=== PATIENT | male | born 1935 | race Caucasian/White ===

== ENCOUNTER 2017-01-03 12:52 | Emergency (ER) | payer OTHER ==
--- NOTE | 2017-01-03 13:36 | CPEKG ---
Heart Rate: 65 RR Interval: 923 P-R Interval: 212 QRSD Interval: 106 QT Interval: 444 QTC Interval: 462 P [place]: 18 QRS [place]: -1 T Wave [place]: 14 EKG Severity - NORMAL ECG - EKG Impression: SINUS RHYTHM Electronically Signed By: Jolene Mckenna 03-Jan-2017 14:46:49
--- NOTE | 2017-01-03 13:37 | EDPHY ---
H & P Time Seen by Provider: 01/03/17 13:21 HPI/ROS: CHIEF COMPLAINT: Shortness of breath HISTORY OF PRESENT ILLNESS: 81-year-old male with a history of hypertension presents with shortness of breath. Last night he was using his CPAP and woke up feeling like he was gasping for air. Eventually he took off the CPAP and went into the kitchen. His breathing became back to normal and he ended up sleeping in a recliner. He awoke this morning and has central chest pain that occurs only with deep inspiration. 2 days ago he was riding his bike up [employer] and was more short of breath than usual. This was associated with chest pain on deep inspiration only. He had a recurrent episode of SOB yesterday while he was running. Productive cough for 4-5 days, no fever. Recently he has had intermittent pain in the right calf, that feels like a muscle spasm. No calf pain currently. No history of pulmonary embolism and no cardiac disease. 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 Smoking Status: Never smoked Physical Exam: General Appearance: Alert, pleasant, frequent moist cough Eyes: Pupils equal and round, no conjunctival pallor or injection ENT, Mouth: Mucous membranes moist Neck: Normal inspection Respiratory: Lungs are clear to auscultation Cardiovascular: Regular rate and rhythm Gastrointestinal: Abdomen is soft and nontender Neurological: A&O, nonfocal, normal gait Skin: Warm and dry, no rash Extremities: Nontender, no pedal edema, negative Homans sign Psychiatric: Mood and affect normal Constitutional: Initial Vital Signs Temperature (C) 36.8 C 01/03/17 12:56 Heart Rate 69 01/03/17 12:56 Respiratory Rate 18 01/03/17 12:56 Blood Pressure 180/101 H 01/03/17 12:56 O2 Sat (%) 95 01/03/17 12:56 O2 Delivery Mode Room Air Allergies/Adverse Reactions: duron peppers Allergy (Unknown, Uncoded 03/21/16 13:10) Home Medications: Medication Instructions Recorded Esomeprazole Mag Trihydrate 40 mg PO DAILY 09/03/14 [Nexium] Herbals/Supplements -Info Only 1 ea PO DAILY 09/03/14 Clopidogrel Bisulfate [Plavix (*)] 75 mg PO DAILY #30 tab 09/05/14 Amitriptyline HCl [Elavil] 37.5 mg PO HS 04/20/15 Atorvastatin Calcium [Lipitor 40 40 mg PO DAILY 04/20/15 mg (*)] Gabapentin [Neurontin 300 MG (*)] 300 mg PO HS 04/20/15 Losartan Potassium [Cozaar 50 mg 50 mg PO DAILY 04/20/15 (*)] Melatonin/Pyridoxine [Melatonin 5 3 tab PO HS PRN 04/20/15 mg Tablet] Augmentin 03/21/16 Cyclobenzaprine [Flexeril 10 MG 10 mg PO TID #9 tab 03/21/16 (*)] Ropinirole HCl 03/21/16 Doxycycline Hyclate 100 mg PO BID #20 tablet 01/03/17 Medical Decision Making - Diagnostics EKG Interpretation: EKG interpreted by me reveals normal sinus rhythm, rate 65, no ST or T segment changes. Impression: Normal EKG Imaging Results: CT pulmonary angiogram read by the radiologist reveals right lower lobe bronchitis and early pneumonia. Imaging: Discussed imaging studies w/ call center trainer Radiologist ED Course/Re-evaluation: This patient presents with cough, shortness of breath and pleuritic chest pain. CT pulmonary angiogram ordered to rule out pulmonary embolism, given advanced age, history of right leg pain, now with shortness of breath and pleuritic chest pain. Fortunately there is no evidence of pulmonary embolism on CT scan. However the patient does have right lower lobe bronchitis and early pneumonia. He does not meet SIRS criteria. Results discussed with the patient and his . Wants to go home. Doxycycline prescribed. He will also f/u with Dr. Chaney in the office because of exertional SOB and cp; however, these sx are most likely secondary to pneumonia. I do not suspect acute coronary syndrome in this patient. Differential Diagnosis: Differential diagnosis includes though it is not limited to pneumonia, pneumothorax, pulmonary embolism, aortic dissection, pericarditis, acute coronary syndrome. - Data Points Laboratory Results: Laboratory Results 01/03/17 13:52 01/03/17 13:52 Departure - Departure Disposition: Home, Routine, Self-Care Clinical Impression: Pneumonia Qualifiers: Pneumonia type: due to unspecified organism Laterality: right Lung location: lower lobe of lung Qualified Code(s): J18.1 - Lobar pneumonia, unspecified organism Condition: Good Instructions: Bacterial Pneumonia (ED) Additional Instructions: Return for worsening symptoms or any concerns. Have your blood pressure rechecked. It is running high today. Referrals: Jaspreet Chaney MD [Medical Doctor] - As per Instructions (Call to make an appointment. ) MIGNON MUNIZ [Primary Care Provider] - 1-2 days without fail Prescriptions: Doxycycline Hyclate 100 mg PO BID #20 tablet
[2017-01-03 14:01] LABS: % IMMATURE GRANULYOCYTES 0.4 % (0.0-1.1); ABSOLUTE IMMATURE GRANULOCYTES 0.05 10^3/uL (0.00-0.10); ADD DIFF? NO; ADD MORPH? NO; ADD SCAN? NO; ATYPICAL LYMPHOCYTE FLAG 0 (0-99); FRAGMENT RBC FLAG 0 (0-99); HEMATOCRIT 43.3 % (40.0-51.0); LEFT SHIFT FLG 0 (0-99); LIPEMIA HEMOLYSIS FLAG 90 (0-99); MEAN CELL HEMOGLOBIN 30.1 pg (27.9-34.1); MEAN CELL HEMOGLOBIN CONCENTR. 34.6 g/dL (32.4-36.7); MEAN CELL VOLUME 86.8 fL (81.5-99.8); MEAN PLATELET VOLUME 9.9 fL (8.7-11.7); PLATELET CLUMPS FLAG 0 (0-99); PLATELET COUNT 191 10^3/uL (150-400); RED BLOOD CELL COUNT 4.99 10^6/uL (4.40-6.38); RED CELL DISTRIBUTION WIDTH 14.4 % (11.5-15.2)
[2017-01-03 14:24] LABS: ANION GAP 11 mEq/L (8-16); CALCIUM 9.3 mg/dL (8.5-10.4); CARBON DIOXIDE 26 mEq/l (22-31); CHLORIDE 101 mEq/L (97-110); CREATININE 1.2 mg/dL (0.7-1.3); GLOMERULAR FILTRATION RATE 58; GLUCOSE 89 mg/dL (70-100); POTASSIUM 4.2 mEq/L (3.5-5.2); SODIUM 138 mEq/L (134-144)
[2017-01-03] MEDS ORDERED: IOPAMIDOL (ISOVUE 370) 100 ML BTL IV ONE (14:32)
[2017-01-03 14:36] LABS: TROPONIN I < 0.012 ng/mL (0.000-0.034)
[2017-01-03 16:19] VITALS: BP 153/82; O2SAT 92
[2017-01-03 16:20] VITALS: PULSE 65; RESP 19; TEMP 98.6
== END 2017-01-03 16:16 | disposition home or self-care (01) ==
DX: J18.9 Pneumonia, unspecified organism (principal); I10 Essential (primary) hypertension
CPT/HCPCS: 71020; 71275; 93005; 99285; Q9967

== ENCOUNTER → 2017-02-25 | Outpatient (CLI) | payer OTHER | LOC: BHFA 13:00 | PROVIDERS: ATTEND Internal Medicine Cardiovascular Disease | DX: R06.09 Other forms of dyspnea (principal) ==